=== PATIENT | male | born 1985 | race American Indian/Alaskan Native ===

== ENCOUNTER 2021-08-02 17:55 | Emergency (ER) | payer OTHER ==
[~2021-08-02] VITALS: Ht 177.8 cm; Wt 63.3 kg
--- NOTE | 2021-08-03 19:56 | EKG ---
[facility] [address] [facility] [place] [address] Signed Normal sinus rhythm Early repolarization Nonspecific ST abnormality Abnormal ECG No previous ECGs available Confirmed by ADIEL CARNES DO ([id number]) on 08/03/2021 7:56:28 PM Electronically Signed By: ADIEL CARNES DO 08/03/211955 PATIENT NAME: GELY SCHWAB Electrocardiogram DATE OF : 83 PHYSICIAN: ADIEL CARNES DO REPORT #: [id number] REPORT IS CONFIDENTIAL AND NOT TO BE RELEASED WITHOUT AUTHORIZATION
== END 2021-08-04 16:15 | disposition short-term general hospital (02) ==
LOC: ED 17:55
DX: F32.A Depression, unspecified (principal); F15.10 Other stimulant abuse, uncomplicated; F11.10 Opioid abuse, uncomplicated; R94.6 Abnormal results of thyroid function studies; Z20.822 Contact with and (suspected) exposure to COVID-19
CPT/HCPCS: 80053; 81001; 84443; 85025; 93005; 93010; 99285-25; C9803; G0480; U0003

== ENCOUNTER 2022-01-04 18:20 | Emergency (ER) | payer OTHER ==
[~2022-01-04] VITALS: Ht 177.8 cm; Wt 63.3 kg
== END 2022-01-05 22:06 | disposition short-term general hospital (02) ==
LOC: ED 18:20
DX: F32.A Depression, unspecified (principal); F15.10 Other stimulant abuse, uncomplicated; Z20.822 Contact with and (suspected) exposure to COVID-19
CPT/HCPCS: 36415; 80053; 81001; 84443; 85025; 87502; 99283; C9803; G0480; U0003